=== PATIENT | female | born 1980 | race African-American/Black ===

== ENCOUNTER 2018-06-27 17:00 | Emergency (ER) | payer BC ==
[2018-06-27 17:50] LABS: ABS Basophils 0.1 10^3/ul (0-0.2); ABS Eosinophils 0.1 10^3/ul (0-0.6); ABS Lymphocytes 2.1 10^3/ul (1.0-4.8); ABS Monocytes 0.5 10^3/ul (0-0.8); ABS Neutrophils 2.2 10^3/ul (1.5-7.7); ABS Nucleated RBC 0 10^3/ul; Eosinophil % 2.6 %; Hematocrit 37 % (35-47); Hemoglobin 12.1 g/dl (12.0-16.0); Lymphocyte % 42.7 %; Mean Corpuscular HGB Conc 33 g/dl (31-36); Mean Corpuscular Hemoglobin 26 pg (27-31); Mean Corpuscular Volume 80 fL (80-97); Mean Platelet Volume 7.9 fL (7.4-10.4); Nucleated Red Blood Cells % 0.1; Platelet Count 240 10^3/ul (150-450); Red Blood Count 4.63 10^6/ul (4.00-5.40); Red Cell Distribution Width 13 % (10.5-15)
[2018-06-27 18:12] LABS: EGFR Non-African American 74.1 (>60)
[2018-06-27] MEDS ORDERED: Ondansetron INJ* 2 MG/ML VIAL IV ONE (18:15)
[2018-06-27] MEDS ORDERED: NS 0.9% 1000 ML* 1,000 ML IV ONE (18:15)
[2018-06-27] MEDS ORDERED: Al Hydrox/Mg Hydrox/Simet LIQ* 30 ML UDC PO ONE (19:38)
[2018-06-27] MEDS ORDERED: Lidocaine 2% VISCOUS* 15 ML UDC PO ONE (19:38)
--- NOTE | 2018-06-27 20:29 | ED ---
Abdominal Pain/Female - HPI Summary HPI Summary: Patient complains of epigastric pain 2 weeks with associated nausea. Abdominal pain described as constant, achy, worse after eating, improved with rest at night. History of same 2 with subsequent ERCP to clear bile duct [place] [address] Jorge Alberto ZHOU. Patient has been tolerating by mouth foods and fluids. Denies fever, cough, sore throat, CP, SOB, N/V/D, change in urine, change in BM, vaginal symptoms. Medical history is HTN, DM 2, PCO as. Abdominal surgical history is cholecystectomy, . - History of Current Complaint Chief Complaint: EDAbdPain Stated Complaint: ABDOMINAL PAIN Time Seen by Provider: 06/27/18 17:53 Hx Obtained From: Patient Hx Last Menstrual Period: end of mar - takes meds [id number] to get cycle r/t pcos Onset/Duration: Gradual Onset Timing: Weeks Severity Initially: Mild Severity Currently: Moderate Pain Intensity: 5 Pain Scale Used: 0-10 Numeric Location: Epigastric Radiates: No Character: Dull Aggravating Factor(s): Food Alleviating Factor(s): Position Associated Signs and Symptoms: Positive: Nausea Allergies/Adverse Reactions: Allergies Allergy/AdvReac Type Severity Reaction Status Date / Time Penicillins Allergy Swelling Verified 06/27/18 17:18 PMH/Surg Hx/FS Hx/Imm Hx Endocrine/Hematology History: Reports: Hx Diabetes Cardiovascular History: Reports: Hx Hypertension Respiratory History: Reports: Hx Asthma Musculoskeletal History: Reports: Other Musculoskeletal History - carpal tunnel Sensory History: Denies: Hx Contacts or Glasses, Hx Hearing Aid Opthamlomology History: Denies: Hx Contacts or Glasses Neurological History: Reports: Hx Migraine - migraine 1-2x per month - Surgical History Surgery Procedure, Year, and Place: ANNA[facility]EL 2000- sludge removal from duct in 2005 Hx Anesthesia Reactions: No Infectious Disease History: No Infectious Disease History: Denies: Hx Clostridium Difficile, Hx Hepatitis, Traveled Outside the [place] in Last 30 Days - Social History Alcohol Use: None Substance Use Type: Reports: None Smoking Status (MU): Never Smoked Tobacco Review of Systems Constitutional: Negative Eyes: Negative ENT: Negative Cardiovascular: Negative Respiratory: Negative Positive: Abdominal Pain, Nausea Genitourinary: Negative Musculoskeletal: Negative Skin: Negative Neurological: Negative Psychological: Normal All Other Systems Reviewed And Are Negative: Yes Physical Exam - Summary Physical Exam Summary: Tender in epigastrium and right upper quadrant, abdominal exam otherwise unremarkable. Triage Information Reviewed: Yes Vital Signs On Initial Exam: Initial Vitals Temp Pulse Resp BP Pulse Ox 97.0 F 71 18 141/86 100 06/27/18 17:15 06/27/18 17:15 06/27/18 17:15 06/27/18 17:15 06/27/18 17:15 Vital Signs Reviewed: Yes Appearance: Positive: Well-Appearing Skin: Positive: Warm Head/Face: Positive: Normal Head/Face Inspection Eyes: Positive: Normal Neck: Positive: Supple Respiratory/Lung Sounds: Positive: Clear to Auscultation Cardiovascular: Positive: Normal Abdomen Description: Positive: Other: Musculoskeletal: Positive: Normal Neurological: Positive: Normal Psychiatric: Positive: Normal AVPU Assessment: Alert - Nadir Coma Scale Best Eye Response: 4 - Spontaneous Best Motor Response: 6 - Obeys Commands Best Verbal Response: 5 - Oriented Coma Scale Total: 15 Diagnostics - Vital Signs Vital Signs Temp Pulse Resp BP Pulse Ox 06/27/18 17:15 97.0 F 71 18 141/86 100 - Laboratory Lab Results: Lab Results 06/27/18 06/27/18 06/27/18 Range/Units 17:39 17:39 17:39 WBC 5.0 (3.5-10.8) 10^3/ul RBC 4.63 (4.00-5.40) 10^6/ul Hgb 12.1 (12.0-16.0) g/dl Hct 37 (35-47) % MCV 80 (80-97) fL MCH 26 L (27-31) pg MCHC 33 (31-36) g/dl RDW 13 (10.5-15) % Plt Count 240 (150-450) 10^3/ul MPV 7.9 (7.4-10.4) fL Neut % (Auto) 43.6 % Lymph % (Auto) 42.7 % Winn % (Auto) 10.1 % Eos % (Auto) 2.6 % Baso % (Auto) 1.0 % Absolute Neuts (auto) 2.2 (1.5-7.7) 10^3/ul Absolute Lymphs (auto) 2.1 (1.0-4.8) 10^3/ul Absolute Monos (auto) 0.5 (0-0.8) 10^3/ul Absolute Eos (auto) 0.1 (0-0.6) 10^3/ul Absolute Basos (auto) 0.1 (0-0.2) 10^3/ul Absolute Nucleated RBC 0 10^3/ul Nucleated RBC % 0.1 Sodium 137 (135-145) mmol/L Potassium 3.8 (3.5-5.0) mmol/L Chloride 104 (101-111) mmol/L Carbon Dioxide 26 (22-32) mmol/L Anion Gap 7 (2-11) mmol/L BUN 14 (6-24) mg/dL Creatinine 0.87 (0.51-0.95) mg/dL Est GFR ( Amer) 89.7 (>60) Est GFR (Non-Af Amer) 74.1 (>60) BUN/Creatinine Ratio 16.1 (8-20) Glucose 88 (70-100) mg/dL Lactic Acid 1.4 (0.5-2.0) mmol/L Calcium 9.6 (8.6-10.3) mg/dL Total Bilirubin 0.50 (0.2-1.0) mg/dL AST 17 (13-39) U/L ALT 14 (7-52) U/L Alkaline Phosphatase 47 (34-104) U/L C-Reactive Protein 2.40 (<8.01) mg/L Total Protein 7.8 (6.4-8.9) g/dL Albumin 4.3 (3.2-5.2) g/dL Globulin 3.5 (2-4) g/dL Albumin/Globulin Ratio 1.2 (1-3) Lipase 13 (11.0-82.0) U/L Beta HCG, Quant < 0.60 mIU/mL Result Diagrams: 06/27/18 17:39 06/27/18 17:39 Lab Statement: Any lab studies that have been ordered have been reviewed, and results considered in the medical decision making process. Abdominal Pain Fem Course/Dx - Course Course Of Treatment: Patient complains of epigastric pain 2 weeks with associated nausea. Abdominal pain described as constant, achy, worse after eating, improved with rest at night. History of same 2 with subsequent ERCP to clear bile duct in [address] Jorge Alberto ZHOU. Patient has been tolerating by mouth foods and fluids. Denies fever, cough, sore throat, CP, SOB , N/V/D, change in urine, change in BM, vaginal symptoms. Medical history is HTN, DM 2, PCO as. Abdominal surgical history is cholecystectomy, . Physical exam:Tender in epigastrium and right upper quadrant, abdominal exam otherwise unremarkable. Vital signs normal. Labs unremarkable. Ultrasound of liver and common bile duct unremarkable. Has appointment with GI August 01 for further evaluation.. Symptom control until then. Patient understands and approves of plan. - Diagnoses Provider Diagnoses: Epigastric pain Discharge - Sign-Out/Discharge Documenting (check all that apply): Patient Departure - Discharge Plan Condition: Stable Disposition: HOME Prescriptions: Dicyclomine CAP* [Bentyl CAP*] 20 mg PO TID PRN 10 Days #60 cap PRN Reason: Pain HYDROcodone/ACETAMIN 5-325 MG* [[place] 5-325 TAB*] 1 tab PO BID 3 Days #6 tab MDD 2-3 tabs Patient Education Materials: Epigastric Pain (ED) Referrals: Urvashi Joshi MD [Primary Care Provider] - Neo Azul MD [Medical Doctor] - Additional Instructions: Follow-up with your scheduled appointment in July with GI Dr. Azul. Avoid fatty foods. Ibuprofen for pain. Return to the ED for any new or worsening symptoms. - Billing Disposition and Condition Condition: STABLE Disposition: Home
[2018-06-27] MEDS ORDERED: Ibuprofen TAB* 600 MG PO ONE (20:33)
[2018-06-27 21:00] VITALS: BP 136/63
== END 2018-06-27 20:58 | disposition home or self-care (01) ==
LOC: ED 17:00
DX: R10.13 Epigastric pain (principal); R11.0 Nausea; Z90.49 Acquired absence of other specified parts of digestive tract; Z88.0 Allergy status to penicillin
CPT/HCPCS: 36415; 76705; 80053; 83605; 83690; 84702; 85025; 86140; 96374; 99282; A9270-GY; J2405